=== PATIENT | female | born 1955 | race Caucasian/White ===

== ENCOUNTER 2017-07-12 23:29 | Inpatient (IN) | payer OTHER, MEDICAID ==
[~2017-07-12] VITALS: Ht 160 cm; Wt 84.6 kg
[2017-07-13 00:22] LABS: BASOPHIL % 0.4 % (0-2); PLATELET COUNT 259 x10^3mcL (130-400)
[2017-07-13 00:35] LABS: RED CELL DISTRIBUTION WIDTH 16.2 % (11.5-14.5)
[2017-07-13 00:47] LABS: CALCIUM 8.5 mg/dL (8.5-10.1); CARBON DIOXIDE 28.5 mmol/L (21-32); CHLORIDE SERUM 105 mmol/L (98-107); CREATININE SERUM 0.9 mg/dL (0.6-1.0); GFR1 > 60 mL/min; GLUCOSE SERUM 107 mg/dL (74-106); POTASSIUM SERUM 3.4 mmol/L (3.5-5.1); SODIUM SERUM 141 mmol/L (136-145)
[2017-07-13 00:52] LABS: ALBUMIN 3.5 g/dL (3.4-5.0); ALKALINE PHOSPHATASE 110 U/L (46-116); ALT/SGPT 37 U/L (14-59); AST/SGOT 26 U/L (15-37); BILIRUBIN TOTAL 0.4 mg/dL (0.20-1.00); TOTAL PROTEIN, SERUM 7.6 g/dL (6.4-8.2)
[2017-07-13] MEDS ORDERED: GLUCOTROL10 MG PO (01:48)
[2017-07-13] MEDS ORDERED: SYNTHROID0.1 MG PO (01:49)
[2017-07-13] MEDS ORDERED: OMEPRAZOLE40 M1 PO (01:49)
[2017-07-13] MEDS ORDERED: [UNRECOGNIZED DRUG - OTHER] (01:51)
[2017-07-13 02:53] LABS: T3 TOTAL 1.02 ng/mL
[2017-07-13 02:59] LABS: FREE T4 1.12 ng/dL (0.76-1.46); FREE THYROXINE INDEX 2.7 ug/dL (1.4-4.5); T4(THYROXINE) 8.4 ug/dL (4.7-13.3)
[2017-07-13 03:01] LABS: CHOLESTEROL/HDL RATIO 3.6; MAGNESIUM 1.9 mg/dL (1.8-2.4); PHOSPHOROUS 2.9 mg/dL (2.5-4.9)
[2017-07-13 03:05] VITALS: BP 132/86
[2017-07-13 06:02] VITALS: BP 128/71
[2017-07-13 09:41] VITALS: BP 147/79
[2017-07-13 14:00] VITALS: BP 130/60
[2017-07-13 17:11] VITALS: BP 129/67
[2017-07-13 19:45] LABS: UA SPECIFIC GRAVITY 1.025 (1.005-1.035); microscopic required? YES; urine erythrocyte NEGATIVE (NEGATIVE)
[2017-07-13 20:10] LABS: AMPHETAMINE QUAL UR NONE DETECTED (NEG <=1000)
[2017-07-13 21:01] VITALS: BP 99/48
[2017-07-14 05:11] VITALS: BP 122/57
[2017-07-14 06:13] LABS: CARBON DIOXIDE 29.6 mmol/L (21-32); MAGNESIUM 2.2 mg/dL (1.8-2.4); PHOSPHOROUS 3.1 mg/dL (2.5-4.9); POTASSIUM SERUM 4.1 mmol/L (3.5-5.1)
[2017-07-14 06:44] LABS: BASOPHIL % 0.7 % (0-2); PLATELET COUNT 192 x10^3mcL (130-400); RED CELL DISTRIBUTION WIDTH 16.8 % (11.5-14.5)
[2017-07-14 10:11] VITALS: BP 124/67
[2017-07-14 13:07] VITALS: BP 151/59
[2017-07-14 17:55] VITALS: BP 110/71
[2017-07-14 20:34] VITALS: BP 106/61
[2017-07-15 05:20] VITALS: BP 169/65
[2017-07-15 06:32] LABS: BASOPHIL % 0.5 % (0-2); PLATELET COUNT 206 x10^3mcL (130-400)
[2017-07-15 06:52] LABS: RED CELL DISTRIBUTION WIDTH 16.8 % (11.5-14.5)
[2017-07-15 06:59] LABS: CALCIUM 8.2 mg/dL (8.5-10.1); CARBON DIOXIDE 25.5 mmol/L (21-32); CHLORIDE SERUM 114 mmol/L (98-107); CREATININE SERUM 0.9 mg/dL (0.6-1.0); GFR1 > 60 mL/min; GLUCOSE SERUM 77 mg/dL (74-106); POTASSIUM SERUM 3.9 mmol/L (3.5-5.1); SODIUM SERUM 145 mmol/L (136-145)
[2017-07-15 09:25] VITALS: BP 159/72
[2017-07-15 17:29] VITALS: BP 132/63
[2017-07-15 21:24] VITALS: BP 129/57
[2017-07-16 05:48] VITALS: BP 156/80
[2017-07-16 06:40] LABS: BASOPHIL % 0.7 % (0-2); PLATELET COUNT 212 x10^3mcL (130-400)
[2017-07-16 06:44] LABS: CALCIUM 8.3 mg/dL (8.5-10.1); CARBON DIOXIDE 24.1 mmol/L (21-32); CHLORIDE SERUM 112 mmol/L (98-107); CREATININE SERUM 0.8 mg/dL (0.6-1.0); GFR1 > 60 mL/min; GLUCOSE SERUM 78 mg/dL (74-106); MAGNESIUM 1.7 mg/dL (1.8-2.4); PHOSPHOROUS 2.8 mg/dL (2.5-4.9); POTASSIUM SERUM 3.8 mmol/L (3.5-5.1); SODIUM SERUM 144 mmol/L (136-145)
[2017-07-16 07:02] LABS: RED CELL DISTRIBUTION WIDTH 16.3 % (11.5-14.5)
[2017-07-16 09:20] VITALS: BP 153/63
[2017-07-16] MEDS ORDERED: QUETIAPINE FUMA25 M1 PO (14:43)
[2017-07-16] MEDS ORDERED: DUL10S RC (14:43)
[2017-07-16] MEDS ORDERED: COL100 PO (14:43)
[2017-07-16] MEDS ORDERED: HUMULIN R100 U/1 M1 SC (14:46)
[2017-07-16] MEDS ORDERED: SYN1 PO (14:46)
[2017-07-16] MEDS ORDERED: DEXPF IV (14:47)
[2017-07-16] MEDS ORDERED: ANC1I IV (15:01)
[2017-07-16 15:47] VITALS: BP 153/63
== END 2017-07-16 17:39 | DRG 602 ==
LOC: ED 23:29 → MU 07-13 01:39 → DU 07-13 01:39 → MU 07-14 03:03
PROVIDERS: Emergency Medicine; Family Medicine; ADMIT Family Medicine
DX: L03.115 Cellulitis of right lower limb (principal); N17.0 Acute kidney failure with tubular necrosis; F20.0 Paranoid schizophrenia; J98.11 Atelectasis; D68.69 Other thrombophilia; E11.9 Type 2 diabetes mellitus without complications; E11.51 Type 2 diabetes mellitus with diabetic peripheral angiopathy without gangrene; D64.9 Anemia, unspecified; E83.42 Hypomagnesemia; E78.5 Hyperlipidemia, unspecified; E87.8 Other disorders of electrolyte and fluid balance, not elsewhere classified; R80.9 Proteinuria, unspecified; E87.6 Hypokalemia; K21.9 Gastro-esophageal reflux disease without esophagitis; E03.9 Hypothyroidism, unspecified; Z68.33 Body mass index [BMI] 33.0-33.9, adult; Z79.84 Long term (current) use of oral hypoglycemic drugs; F17.210 Nicotine dependence, cigarettes, uncomplicated
CPT/HCPCS: 83880; 84439; 94150; 97110-GP; 97116-GP; 97530-GP; J0690; J1885; J2270; J2405; J3490; J7030; Q0092